=== PATIENT | female | born 1970 | race African-American/Black ===

== ENCOUNTER 2016-05-24 21:22 | Emergency (ER) | payer BC, OTHER ==
[2016-05-24 21:27] VITALS: BP 140/89; PULSE 94; TEMP 97.9; BMI 51.0
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
[2016-05-24] MEDS ORDERED: IBUPROFEN 600 MG TABLET (FP) PO ONE ×2 (22:23→22:24)
== END 2016-05-24 22:39 | disposition home or self-care (01) ==
LOC: JERFT 21:22
DX: S80.02XA Contusion of left knee, initial encounter (principal); V43.52XA Car driver injured in collision with other type car in traffic accident, initial encounter; Y92.411 Interstate highway as the place of occurrence of the external cause; Y99.0 Civilian activity done for income or pay; Y93.89 Activity, other specified; Y99.8 Other external cause status; Z98.61 Coronary angioplasty status; E78.00 Pure hypercholesterolemia, unspecified
CPT/HCPCS: 99281-25